=== PATIENT | female | born 2000 | race Caucasian/White ===

== ENCOUNTER 2021-03-01 10:21 | Observation (INO) | payer BC, MEDICAID ==
--- NOTE | 2021-03-01 11:26 | XRAY ---
Indication: Twin . well-being. Ultrasound biophysical profile exam of twin A demonstrates heart rate 144 BPM. Four-quadrant LEBRON is 9.8 cm, largest pocket 2.6 cm. 2 points given for breathing, movements, tone, and qualitative amniotic fluid volume. Impression: Twin A biophysical profile score is 8 out of 8.
--- NOTE | 2021-03-01 11:28 | XRAY ---
Indication: Twin . well-being. Ultrasound biophysical profile exam of twin B demonstrates heart rate 152 BPM. Four-quadrant LEBRON is 10.1 cm, largest pocket 3.4 cm. 2 points given for breathing, movements, tone, and qualitative amniotic fluid volume. Impression: Twin B biophysical profile score is 8 out of 8.
[2021-03-01 11:56] VITALS: O2SAT 98
[2021-03-01 13:33] VITALS: BP 110/59; PULSE 92
== END 2021-03-01 12:45 | disposition home or self-care (01) ==
LOC: MERGE 10:21 → MED SURG 10:21
PROVIDERS: ADMIT Family Medicine; ATTEND Family Medicine
DX: Z34.83 Encounter for supervision of other normal pregnancy, third trimester (principal); Z3A.32 32 weeks gestation of pregnancy
CPT/HCPCS: 59025; 76818; G0378

== ENCOUNTER 2021-03-06 11:53 | Observation (INO) | payer BC ==
--- NOTE | 2021-03-06 13:48 | XRAY ---
Indication: well-being. Ultrasound biophysical profile exam performed for twin B. heart rate 159 BPM. Four-quadrant LEBRON is 12.2 cm. 2 points given for breathing, movements, tone, and qualitative amniotic fluid volume. Impression: Total biophysical profile score for twin B is 8 out of 8.
--- NOTE | 2021-03-06 13:48 | XRAY ---
Indication: well-being. Ultrasound biophysical profile exam performed for twin A. heart rate 137 BPM. Four-quadrant LEBRON is 13.6 cm. 2 points given for breathing, movements, tone, and qualitative amniotic fluid volume. Impression: Total biophysical profile score for twin A is 8 out of 8.
[2021-03-06 13:55] VITALS: BP 119/68; PULSE 98
[2021-03-06 14:36] LABS: Absolute Neutrophil Ct (ANC) 5.71 (1.4-6.9); BASOPHIL % 0.4 % (0.0-0.4); Basophil (Absolute #) 0.03 (0-0.4); Eosinophil % 1.1 % (0.00-5.0); Eosinophil (Absolute #) 0.09 (0-0.5); Hematocrit 36.3 % (35-47); Hemoglobin 11.7 gm/dl (12.0-16.0); Lymphocyte (Absolute #) 1.44 (1.0-4.6); Mean Cell Volume 95.5 fl (78-100); Mean Corpuscular Hemoglobin 30.8 pg (26-32); Mean Corpuscular Hgb Concent. 32.2 g/dl (32-36); Mean Platelet Volume 11.9 fl (7.5-11.0); Monocyte (Absolute #) 0.74 (0.0-1.3); Monocytes % 9.2 % (0.0-12.0); Neutrophil % 71.3 % (36.0-66.0); Platelet Count 180 K/mm3 (150-450)
== END 2021-03-06 13:15 | disposition home or self-care (01) ==
LOC: OB 11:53 → MERGE 11:53
PROVIDERS: ADMIT Family Medicine; ATTEND Family Medicine
DX: Z34.83 Encounter for supervision of other normal pregnancy, third trimester (principal); Z3A.33 33 weeks gestation of pregnancy
CPT/HCPCS: 36415; 59025; 76819; 85025; 86592; 87340; G0378

== ENCOUNTER 2021-03-08 09:03 | Observation (INO) | payer BC ==
[2021-03-08 11:00] VITALS: BP 116/58; PULSE 107
--- NOTE | 2021-03-08 11:20 | XRAY ---
Indication: Routine care. Ultrasound biophysical profile exam performed for twin B. heart rate 152 BPM. Four-quadrant LEBRON is 9.3 cm. 2 points given for breathing, movements, tone, and qualitative amniotic fluid volume. Impression: Total biophysical profile score for twin B is 8 out of 8.
--- NOTE | 2021-03-08 11:20 | XRAY ---
Indication: Routine care. Ultrasound biophysical profile exam performed for twin A. heart rate 147 BPM. Four-quadrant LEBRON is 13.8 cm. 2 points given for breathing, movements, tone, and qualitative amniotic fluid volume. Impression: Total biophysical profile score for twin A is 8 out of 8.
== END 2021-03-08 11:25 | disposition home or self-care (01) ==
LOC: OB 09:54
PROVIDERS: ADMIT Family Medicine; ATTEND Family Medicine
DX: Z34.83 Encounter for supervision of other normal pregnancy, third trimester (principal); Z3A.33 33 weeks gestation of pregnancy
CPT/HCPCS: 59025; 76818; G0378

== ENCOUNTER 2021-03-13 07:50 | Observation (INO) | payer BC, MEDICAID ==
[2021-03-13 09:53] VITALS: BP 132/71; PULSE 94
--- NOTE | 2021-03-13 09:59 | XRAY ---
Indication: Routine care. Ultrasound biophysical profile exam performed of twin A. heart rate 176 BPM. Four-quadrant LEBRON is 9.3 cm, largest pocket 4.9 cm. 2 points given for breathing, movements, tone, and qualitative amniotic fluid volume. Impression: Total biophysical profile score twin A is 8 out of 8.
--- NOTE | 2021-03-13 10:01 | XRAY ---
Indication: Routine care. Ultrasound biophysical profile exam performed of twin B. heart rate 150 BPM. Four-quadrant LEBRON is 10.9 cm, largest pocket 4.4 cm. 2 points given for breathing, movements, tone, and qualitative amniotic fluid volume. Impression: Total biophysical profile score twin B is 8 out of 8.
== END 2021-03-13 10:15 | disposition home or self-care (01) ==
LOC: OB 07:51
PROVIDERS: ADMIT Family Medicine; ATTEND Family Medicine
DX: O30.003 Twin pregnancy, unspecified number of placenta and unspecified number of amniotic sacs, third trimester (principal); Z3A.34 34 weeks gestation of pregnancy
CPT/HCPCS: 59025; 76818; G0378

== ENCOUNTER 2021-03-15 08:53 | Observation (INO) | payer BC, MEDICAID ==
--- NOTE | 2021-03-15 11:03 | XRAY ---
Indication: Supervision twin . Ultrasound biophysical profile exam performed of twin A. heart rate 155 BPM. Four-quadrant LEBRON is 10.5 cm. 2 points given for breathing, movements, tone, and qualitative amniotic fluid volume. Impression: Twin A biophysical profile score is 8 out of 8.
--- NOTE | 2021-03-15 11:05 | XRAY ---
Indication: Supervision twin . Ultrasound biophysical profile exam performed of twin B. heart rate 135 BPM. Four-quadrant LEBRON is 11.2 cm. 2 points given for breathing, movements, tone, and qualitative amniotic fluid volume. Impression: Twin B biophysical profile score is 8 out of 8.
[2021-03-15 12:16] VITALS: BP 133/86; PULSE 86
== END 2021-03-15 10:45 | disposition home or self-care (01) ==
LOC: OB 08:53
PROVIDERS: ADMIT Family Medicine; ATTEND Family Medicine
DX: O30.003 Twin pregnancy, unspecified number of placenta and unspecified number of amniotic sacs, third trimester (principal); Z3A.34 34 weeks gestation of pregnancy
CPT/HCPCS: 59025; 76818; G0378

== ENCOUNTER 2021-03-20 23:44 | Inpatient (IN) | payer BC, MEDICAID ==
[2021-03-21 00:23] LABS: Amourphous Crystal FEW /HPF (NEGATIVE); Appearance SLIGHTLY CLOUDY (CLEAR); Bacteria MODERATE /HPF (NEGATIVE); Bilirubin NEGATIVE (NEGATIVE); Blood NEGATIVE Ery/ul (0-5); Epithelial Cells RARE /HPF (FEW); Glucose NEGATIVE (NEGATIVE); Ketones NEGATIVE (NEGATIVE); Leukocyte Esterase LARGE (NEGATIVE); Nitrite NEGATIVE (NEGATIVE); Protein,Urine Dip NEGATIVE (Negative); Specific Gravity 1.006 (1.005-1.025); Urobilinogen NEGATIVE mg/dL (0-1); WBC 26-50 /HPF (0-5)
[2021-03-21 00:35] LABS: Amphetamine,Urine NEGATIVE (NEGATIVE); Barbiturate,Urine NEGATIVE (NEGATIVE); Benzodiazepine,Urine NEGATIVE (NEGATIVE); Cocaine,Urine NEGATIVE (NEGATIVE); Methadone,Urine NEGATIVE (NEGATIVE); Opiate,Urine NEGATIVE (NEGATIVE); PCP,Urine NEGATIVE (NEGATIVE); THC,Urine NEGATIVE (NEGATIVE)
[2021-03-21] MEDS ORDERED: Lactated Ringers 1,000 ML IV ONE (00:40)
[2021-03-21] MEDS ORDERED: Zofran 4 MG/2 ML VIAL IV PRN (00:55)
[2021-03-21] MEDS ORDERED: Celestone Soluspan 6MG/ML IM SCH (01:00)
[2021-03-21] MEDS ORDERED: Magnesium Sulfate 40 Gm/1000 Ml H2O Premix*** 1,000 ML IV SCH (01:30)
[2021-03-21] MEDS: Nubain 10 MG/ML IV PRN ×2 (01:35→03:34)
[2021-03-21 01:41] LABS: Absolute Neutrophil Ct (ANC) 6.98 (1.4-6.9); BASOPHIL % 0.3 % (0.0-0.4); Basophil (Absolute #) 0.03 (0-0.4); Hematocrit 40.9 % (35-47); Hemoglobin 13.4 gm/dl (12.0-16.0); Lymphocyte (Absolute #) 2.22 (1.0-4.6); Lymphocytes % 21.9 % (24.0-44.0); Mean Cell Volume 92.7 fl (78-100); Mean Corpuscular Hemoglobin 30.4 pg (26-32); Mean Corpuscular Hgb Concent. 32.8 g/dl (32-36); Mean Platelet Volume 13.3 fl (7.5-11.0); Monocyte (Absolute #) 0.79 (0.0-1.3); Monocytes % 7.8 % (0.0-12.0); Platelet Count 192 K/mm3 (150-450); Red Blood Count 4.41 M/mm3 (4.1-5.4); Red Cell Distribution Width 13.8 % (11.5-14.0); White Blood Count 10.1 K/mm3 (4.0-10.5)
[2021-03-21 01:52] LABS: INR 0.94 (0.8-3.0); PROTIME 10.6 SECONDS (9.95-12.35)
[2021-03-21 01:55] LABS: PTT 25.7 SECONDS (25.3-37.0)
[2021-03-21 01:57] LABS: ALBUMIN 3.2 g/dL (3.5-5.0); ALKALINE PHOSPHATASE 349 U/L (38-126); ANION GAP 11.4 MEQ/L (5-15); BLOOD UREA NITROGEN 4 mg/dL (7-17); CHLORIDE 106 mmol/L (98-107); Calcium 9.8 mg/dL (8.4-10.2); Carbon Dioxide 20 mmol/L (22-30); Creatinine 1 0.66 mg/dL (0.52-1.04); EST GLOMERULAR FILTRATION RATE > 60.0 ML/MIN; Glucose 83 mg/dL (74-106); MAGNESIUM 2.2 mg/dL (1.6-2.3); Potassium 4.3 mmol/L (3.5-5.1); SGOT/AST 66 U/L (14-36); SGPT/ALT 52 U/L (0-35); SODIUM 134 mmol/L (137-145); Total Protein 6.4 g/dL (6.3-8.2)
[2021-03-21] MEDS: Lactated Ringers 1,000 ML IV SCH ×2 (02:31→23:36)
[2021-03-21 03:24] LABS: Creatinine, Urine Random 178.6 mg/dl
[2021-03-21] MEDS ORDERED: CLARITIN 10 MG PO PRN (04:07)
[2021-03-21] MEDS ORDERED: Narcan 0.4 MG/ML IV PRN (04:07)
[2021-03-21] MEDS ORDERED: SOD CITRATE-CITRIC ACID SOLN PO ONE (04:07)
[2021-03-21] MEDS ORDERED: HOLD NARCOTIC ANALGESICS AND SEDATIVES X24 HR MC PRN (04:07)
[2021-03-21] MEDS ORDERED: PERCOCET TABLET 5/325MG PO PRN (04:07)
[2021-03-21] MEDS ORDERED: BENADRYL 50 MG/ML IV PRN (04:07)
[2021-03-21] MEDS ORDERED: DEMEROL 50 MG IV PRN (04:07)
[2021-03-21] MEDS ORDERED: Pepcid 20 MG VIAL IV SCH (04:15)
[2021-03-21] MEDS ORDERED: Reglan 10 MG/2 ML IV SCH (04:15)
[2021-03-21] MEDS ORDERED: BICITRA 30 ML CUP ONE (04:25)
[2021-03-21] MEDS ORDERED: CEFAZOLIN 2 GM-D5W BAG** 2 GM/50 ML ML IV SCH (04:30)
[2021-03-21] MEDS ORDERED: Quelicin Fliptop 200 MG/10 ML ONE (04:59)
[2021-03-21] MEDS ORDERED: SUBLIMAZE 250 MCG/5 ML ONE (04:59)
[2021-03-21] MEDS ORDERED: DIPRIVAN 200 MG/20 ML IV ONE (04:59)
[2021-03-21] MEDS ORDERED: Zofran 4 MG/2 ML VIAL IV ONE (05:00)
[2021-03-21] MEDS ORDERED: DEMEROL 50 MG IJ ONE (05:00)
[2021-03-21] MEDS ORDERED: Sodium Chloride 0.9% 250 ML 250 ML IV ONE (05:00)
[2021-03-21] MEDS ORDERED: Sodium Chloride 0.9% 1000 ML 2,000 ML ONE (05:09)
[2021-03-21] MEDS ORDERED: Pitocin 10 UNITS/ML ONE ×2 (05:32→05:39)
[2021-03-21] MEDS ORDERED: Marcaine 0.5%/Epinephrine 10 ML ONE (05:41)
[2021-03-21] MEDS ORDERED: MARCAINE 0.5%-EPI 1:200,000 VL IJ ONE (05:41)
[2021-03-21 05:52] LABS: ABO TYPING O
[2021-03-21 05:53] LABS: Antibody Screen POSITIVE (NEGATIVE); RH TYPING NEGATIVE
[2021-03-21] MEDS ORDERED: BRIDION 200MG/2ML IV ONE (05:56)
[2021-03-21] MEDS: Dextrose 5%-Lr IV Solution 1000 ML 1,000 ML IV SCH ×3 (07:48→22:05)
[2021-03-21] MEDS ORDERED: Dulcolax 10 MG SUPP PR PRN (18:36)
[2021-03-21] MEDS ORDERED: Anucort-HC SUPPOSITORY PR PRN (18:36)
[2021-03-21] MEDS ORDERED: TUCKS TP PRN (18:36)
[2021-03-21] MEDS ORDERED: CORTISONE 1% CREAM TP PRN (18:36)
[2021-03-21] MEDS ORDERED: LANSINOH 40 GM TOP PRN (18:36)
[2021-03-21] MEDS ORDERED: Mylicon 80MG PO PRN (18:36)
[2021-03-21] MEDS ORDERED: TYLENOL EXTRA STRENGTH 500 MG PO PRN (18:36)
[2021-03-21] MEDS ORDERED: Dermoplast Spray TP PRN (18:36)
[2021-03-21] MEDS: MOTRIN 400 MG PO PRN (18:48)
[2021-03-21] MEDS ORDERED: NORCO 5/325 MG ONE (21:48)
[2021-03-21] MEDS: Colace 100 MG PO SCH (22:04)
[2021-03-21] MEDS: NORCO 5/325 MG PO PRN (22:04)
[2021-03-22] MEDS: MOTRIN 400 MG PO PRN ×3 (01:16→16:32)
[2021-03-22] MEDS: NORCO 5/325 MG PO PRN (03:41)
[2021-03-22 05:54] LABS: Absolute Neutrophil Ct (ANC) 11.38 (1.4-6.9); BASOPHIL % 0.2 % (0.0-0.4); Basophil (Absolute #) 0.04 (0-0.4); Eosinophil % 0.1 % (0.00-5.0); Eosinophil (Absolute #) 0.02 (0-0.5); Hematocrit 25.5 % (35-47); Hemoglobin 8.1 gm/dl (12.0-16.0); Lymphocytes % 19.5 % (24.0-44.0); Mean Cell Volume 98.5 fl (78-100); Mean Corpuscular Hemoglobin 31.3 pg (26-32); Mean Corpuscular Hgb Concent. 31.8 g/dl (32-36); Mean Platelet Volume 13.5 fl (7.5-11.0); Monocyte (Absolute #) 1.73 (0.0-1.3); Monocytes % 10.6 % (0.0-12.0); Neutrophil % 69.6 % (36.0-66.0); Platelet Count 197 K/mm3 (150-450); Red Blood Count 2.59 M/mm3 (4.1-5.4); White Blood Count 16.4 K/mm3 (4.0-10.5)
[2021-03-22] MEDS: Dextrose 5%-Lr IV Solution 1000 ML 1,000 ML IV SCH (06:33)
[2021-03-22] MEDS ORDERED: FERREX 150 PO SCH (10:00)
[2021-03-22] MEDS ORDERED: Rhogam Plus 300 MCG IM ONE (10:00)
[2021-03-22 10:08] LABS: Lymphocytes 40 % (24-44); Monocyte 7 % (0.0-12.0); Neutrophils 53 % (36.0-66.0); Total Cells Counted 100
--- NOTE | 2021-03-22 10:08 | PCM.NOTE ---
Date and Time: 03/22/21 1006 Subjective Assessment: pod 1 pt resting in bed and doing well eager to go home. pt ambulating and tolerating diet and states only minimal vaginal bleeding. vss afebrile abd; soft incicion c/d/intact uterus; firm lochia; mild hgb; 8.1 a/p sp csection for twin gestation with malpresentation pod 1 anemia advise to take iron supplementation tid will repeat cbc at 1 pm today pt eager to go home today will dc home today if hgb stable OBJECTIVE DATA Vital Signs: Vital Signs - 24 hr Temp Pulse Resp BP Pulse Ox 03/22/21 08:00 98.1 F 89 18 125/84 100 03/22/21 05:00 98 03/22/21 04:00 98.3 F 89 17 124/77 100 03/22/21 03:00 99 03/22/21 02:00 98 03/22/21 01:10 99 03/22/21 00:00 98 F 97 H 17 126/77 98 03/21/21 23:50 91 L 03/21/21 23:00 98 03/21/21 22:00 99 03/21/21 21:00 97 03/21/21 20:00 98.1 F 99 H 17 122/88 99 03/21/21 19:00 99 03/21/21 18:00 109 H 03/21/21 17:00 100 03/21/21 16:00 98.2 F 100 H 101 H 03/21/21 15:00 99 03/21/21 14:00 99 03/21/21 13:00 99 03/21/21 12:00 109 H 122/73 99 03/21/21 11:00 99 Pain Assessment - Last Documented Pain Intensity [Anterior/ 3 Posterior] Pain Intensity 4 Pain Scale Used 0-10 Pain Scale Intake and Output: Intake & Output 03/19/21 03/20/21 03/21/21 03/22/21 11:59 11:59 11:59 11:59 Intake Total 2300 4788 Output Total 980 1850 Balance 1320 2938 Weight 67.132 kg Lab Results: Lab Results-Last 24 Hours 03/21/21 03/22/21 Range/Units 08:00 05:45 WBC 16.4 H (4.0-10.5) K/mm3 RBC 2.59 L (4.1-5.4) M/mm3 Hgb 8.1 L D (12.0-16.0) gm/dl Hct 25.5 L (35-47) % MCV 98.5 D (78-100) fl MCH 31.3 (26-32) pg MCHC 31.8 L (32-36) g/dl RDW 14.0 (11.5-14.0) % Plt Count 197 (150-450) K/mm3 MPV 13.5 H (7.5-11.0) fl Gran % 69.6 H (36.0-66.0) % Eos # (Auto) 0.02 (0-0.5) Absolute Lymphs (auto) 3.20 (1.0-4.6) Absolute Monos (auto) 1.73 H (0.0-1.3) Lymphocytes % 19.5 L (24.0-44.0) % Monocytes % 10.6 (0.0-12.0) % Eosinophils % 0.1 (0.00-5.0) % Basophils % 0.2 (0.0-0.4) % Absolute Granulocytes 11.38 H (1.4-6.9) Basophils # 0.04 (0-0.4) Screen SEE SEPARATE REPORT
[2021-03-22 10:09] LABS: ANISOCYTOSIS 1+; Hypochromia 1+; Platelet Estimate NORMAL (NORMAL); Poikilocytosis 1+; Polychromasia 1+
--- NOTE | 2021-03-22 10:13 | PCM.DS ---
Discharge Summary Date of Admission: 03/20/21 23:45 Admitting Physician: BEAU CHANDRA MD Consults: Consults on Case 03/21/21 01:22 Notify Physician ROUTINE 03/21/21 04:08 Notify Anesthesia Provider PRN Primary Care Provider: BEAU CHANDRA MD Allergies Allergies latex Allergy (Verified 03/21/21 00:13) Hospital Summary - Hospital Course Hospital Course: pt admitted on march 21 with twin gestation in labor with malpresentation with twin b was noted to being 5-6 cm upon arrival to hospital where she was supposed to have been delivered in [place]. pt delivered via primary csection with ebl at 600c however was noted having a decreased hgb postoperatively day 1 to 8.1. pt asymptomatic and is able to ambulate and tolerate diet. pt eager to go home since babies were transferred to [place]. pt was advised to take iron supplementation tid and was advised to fu in office in 2 wks. all questions answered to her satisfaction. - Vitals & Intake/Output Vital Signs: Vital Signs Temperature 98.1 F 03/22/21 08:00 Pulse Rate 89 03/22/21 08:00 Respiratory Rate 18 03/22/21 08:00 Blood Pressure 125/84 03/22/21 08:00 O2 Sat by Pulse Oximetry 100 03/22/21 08:00 Intake & Output: Intake & Output 03/19/21 03/20/21 03/21/21 03/22/21 11:59 11:59 11:59 11:59 Intake Total 2300 4788 Output Total 980 1850 Balance 1320 2938 Weight 67.132 kg - Lab Result Diagrams: 03/22/21 05:45 03/21/21 01:15 Lab Results-Last 24 Hrs: Lab Results-Last 24 Hours 03/21/21 03/22/21 Range/Units 08:00 05:45 WBC 16.4 H (4.0-10.5) K/mm3 RBC 2.59 L (4.1-5.4) M/mm3 Hgb 8.1 L D (12.0-16.0) gm/dl Hct 25.5 L (35-47) % MCV 98.5 D (78-100) fl MCH 31.3 (26-32) pg MCHC 31.8 L (32-36) g/dl RDW 14.0 (11.5-14.0) % Plt Count 197 (150-450) K/mm3 MPV 13.5 H (7.5-11.0) fl Gran % 69.6 H (36.0-66.0) % Eos # (Auto) 0.02 (0-0.5) Absolute Lymphs (auto) 3.20 (1.0-4.6) Absolute Monos (auto) 1.73 H (0.0-1.3) Lymphocytes % 19.5 L (24.0-44.0) % Monocytes % 10.6 (0.0-12.0) % Eosinophils % 0.1 (0.00-5.0) % Basophils % 0.2 (0.0-0.4) % Absolute Granulocytes 11.38 H (1.4-6.9) Basophils # 0.04 (0-0.4) Slides for Path Review [employer]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 SEE SEPARATE REPORT Micro Results-Entire Visit: Microbiology 03/21/21 00:13 Urine Culture - Preliminary Urine, Void NO GROWTH TO DATE Final Diagnosis/Problem List - Final Discharge Diagnosis/Problem (1) delivery delivered Current Visit: Yes Status: Acute Code(s): O82 - ENCOUNTER FOR DELIVERY WITHOUT INDICATION (2) Twin gestation in third trimester Current Visit: Yes Status: Acute Code(s): O30.003 - TWIN PREG, UNSP NUM PLCNTA & AMNIO SACS, THIRD TRIMESTER - Discharge Disposition: Home, Self-Care Condition: Stable Prescriptions: No Action Vits W-Ca,Fe,FA(<1Mg) [] 1 each PO DAILY Loratadine 10 mg [Claritin 10 mg] 10 mg PO DAILY PRN PRN PRN Reason: Allergies Nitrofurantoin Monohyd/M-Cryst [Nitrofurantoin [place]-Mcr 100 mg] 100 mg PO DAILY Folic Acid 1 mg [Folate 1 mg] 1 mg PO HS Calcium Carbonate [Calcium] 500 mg PO HS Aspirin 81 gm Chew [Baby Aspirin 81 mg Chew] 2 tab PO DAILY Follow up with: BEAU CHANDRA MD [Primary Care Provider] -
--- NOTE | 2021-03-22 10:14 | PCM.DCORD ---
- Discharge Disposition: Home, Self-Care Condition: Stable Prescriptions: No Action Vits W-Ca,Fe,FA(<1Mg) [] 1 each PO DAILY Loratadine 10 mg [Claritin 10 mg] 10 mg PO DAILY PRN PRN PRN Reason: Allergies Nitrofurantoin Monohyd/M-Cryst [Nitrofurantoin [place]-Mcr 100 mg] 100 mg PO DAILY Folic Acid 1 mg [Folate 1 mg] 1 mg PO HS Calcium Carbonate [Calcium] 500 mg PO HS Aspirin 81 gm Chew [Baby Aspirin 81 mg Chew] 2 tab PO DAILY Follow up with: BEAU CHANDRA MD [Primary Care Provider] - DEN HERRERA DO [ACTIVE STAFF] - 2 weeks (keep incision clean and dry should fu in office in 2 wks)
[2021-03-22] MEDS: Colace 100 MG PO SCH ×2 (11:05→22:48)
--- NOTE | 2021-03-22 11:23 | OP ---
SURGERY DATE/TIME: 03/21/2021 0514 PREOPERATIVE DIAGNOSIS: Intrauterine at 35 weeks and 3 days with two gestation in labor with malpresentation of twin B, multiparity, desires tubal sterilization. POSTOPERATIVE DIAGNOSIS: Intrauterine at 35 weeks and 3 days with two gestation in labor with malpresentation of twin B, multiparity, desires tubal sterilization. PROCEDURES: 1) Primary section, low flap transverse uterine incision, Pfannenstiel skin incision. 2) Bilateral tubal sterilization. SURGEON: Isaias Cullen D.O. AIRDROP SYSTEMS TECHNICIAN: Dr. Mcnally. ANESTHESIA: General. ESTIMATED BLOOD LOSS: 600 cc. COMPLICATIONS: None. INDICATIONS: The risks, benefits, indications and alternatives of the procedure were reviewed with the patient prior to procedure. The patient understood the risk of infection, bleeding, bowel injury, bladder injury, ureteral injury, incisional hernia, possible pelvic infection and clotting disorder associated with this procedure however desires to have this procedure as a possible mean to alleviate her current medical condition. DESCRIPTION OF PROCEDURE AND FINDINGS: At this point the patient is taken to the operating room where general anesthesia was found to adequate. She was then prepared and draped in normal sterile fashion in dorsal supine position with a leftward tilt. A Pfannenstiel skin incision is made with scalpel and carried through to the underlying layer of the fascia with a Bovie. The fascia was then incised in the midline and the incision extended laterally with Patel scissors. The superior aspect of the fascial incision was then grasped with Kole clamps elevated and the underlying rectus muscles dissected off bluntly. Attention is then turned to the inferior aspect of this incision which in similar fashion was grasped, tented up with Kole clamps and the rectus muscles dissected off bluntly. The rectus muscles were then in the midline and the peritoneum identified, tented up and entered sharply with Metzenbaum scissors. The peritoneal incision was then extended superiorly and inferiorly with good visualization of the bladder. The bladder blade was then inserted and the lower uterine segment incised in transverse fashion with a scalpel. The uterine incision was then extended laterally with bandage scissors. The bladder blade was then removed and twin A was delivered atraumatically in vertex presentation with the nose and mouth were suctioned with bulb suction and the cord clamped and cut. The was then handed off to the awaiting nurses. Twin B was delivered in breech buttock presentation first, lower extremities and finally the trunk and then finally the head. Again, the nose and mouth were suctioned with bulb suction. The cord clamped and cut and the infant was handed off to the awaiting nurses. The placenta was then removed. The uterus exteriorized and cleared of all clots and debris. The uterine incision was repaired with 1-0 chromic in a running locked fashion. A second layer of the same suture was used to obtain excellent hemostasis. From this point a Terrance clamp was then used to grasp the tube approximately 4 cm from the cornual region where a 3 cm segment of tube was then ligated with free tie of plain gut and excised. Good hemostasis was noted. A Clymer clamp was placed on the right side was used to grasp the tube approximately 4 cm from the cornual region where a 3 cm segment of the tube was then ligated with free tie of plain gut and excised. Good hemostasis was assured. From this point the uterus is then returned to the abdomen. The gutters were cleared of all clots and the peritoneal muscles closed in interrupted fashion using 2-0 chromic suture. The fascia was re-approximated with 0 Vicryl in a running fashion. The skin was closed with absorbable holden called INSORB. The patient tolerated the procedure well. Sponge, lap, needle and instrument counts correct x2. The patient was then taken to the recovery room in stable condition. The patient delivered twin A at 0531 hours and twin B at 0532 hours.
[2021-03-22 13:28] LABS: Hematocrit 23.4 % (35-47); Hemoglobin 7.4 gm/dl (12.0-16.0); Mean Cell Volume 98.7 fl (78-100); Mean Corpuscular Hemoglobin 31.2 pg (26-32); Mean Corpuscular Hgb Concent. 31.6 g/dl (32-36); Mean Platelet Volume 12.1 fl (7.5-11.0); Platelet Count 180 K/mm3 (150-450); Red Blood Count 2.37 M/mm3 (4.1-5.4); Red Cell Distribution Width 14.1 % (11.5-14.0); White Blood Count 13.6 K/mm3 (4.0-10.5)
[2021-03-22 14:33] LABS: BAND 1 % (0.0-2.0); Lymphocytes 21 % (24-44); Neutrophils 78 % (36.0-66.0); Total Cells Counted 100
[2021-03-22 14:34] LABS: ANISOCYTOSIS 1+; Poikilocytosis 1+; Polychromasia 1+
[2021-03-22 14:36] LABS: Platelet Estimate NORMAL (NORMAL)
--- NOTE | 2021-03-22 15:07 | XRAY ---
Indication: Dropping hemoglobin. Status post section. Targeted soft tissue ultrasound of the abdominal wall incision demonstrates heterogeneous fluid collection measuring at least 8.8 x 14 cm and 3 cm in thickness without abnormal color Doppler flow, probably postoperative hematoma/seroma. Infected fluid collection not completely excluded in the right clinical setting.
--- NOTE | 2021-03-22 17:00 | XRAY ---
Indication: Blood count drop. Status post section one day earlier. Multiple contiguous axial images obtained through the abdomen and pelvis prior to and following 80 cc Isovue 370 contrast. Comparison: None Lung bases demonstrates minimal subsegmental atelectasis/scarring without infiltrate or effusion. Heart is nonenlarged. Small hiatal hernia. Noncontrast images are negative for pathologic visceral calcification/calculi. Noncontrasted stomach and bowel loops appear nonobstructed. Postcontrast images demonstrates normal visceral enhancement and renal excretion. Markedly enlarged uterus with prominent gonadal veins consistent with recent . Tiny free air and small free fluid throughout the abdomen/pelvis and air bubbles in the endometrial cavity of the uterus all presumed related to with section. Anterior abdominal wall at the level of the pelvis demonstrates large heterogeneous solid/fluid/air density mass measuring at least 3.6 x 20.2 x 13.3 cm probable postoperative abdominal wall hematoma/seroma and less likely abscess. Gallbladder contracted without gallstones. Remaining liver, pancreas, spleen, adrenal glands, kidneys, ureters, bladder, and aorta are unremarkable. No pathologic retroperitoneal lymphadenopathy. Osseous structures intact. Impression: 1. Enlarged uterus with endometrial cavity air and small free fluid/free air in the abdomen/pelvis all presumed related to recent with section. 2. Abdominal wall heterogeneous mass as detailed presumed postoperative hematoma/seroma and less likely abscess. 3. Incidental small hiatal hernia.
[2021-03-22] MEDS ORDERED: SOD CITRATE-CITRIC ACID SOLN PO ONE (17:28)
[2021-03-22] MEDS ORDERED: Sodium Chloride 0.9% 1000 ML 1,000 ML IV SCH (17:45)
[2021-03-22 17:48] LABS: Hematocrit 23.4 % (35-47); Hemoglobin 7.4 gm/dl (12.0-16.0); Mean Cell Volume 97.9 fl (78-100); Mean Corpuscular Hgb Concent. 31.6 g/dl (32-36); Mean Platelet Volume 12.6 fl (7.5-11.0); Platelet Count 196 K/mm3 (150-450); Red Blood Count 2.39 M/mm3 (4.1-5.4); Red Cell Distribution Width 14.1 % (11.5-14.0); White Blood Count 13.2 K/mm3 (4.0-10.5)
[2021-03-22] MEDS ORDERED: BRIDION 200MG/2ML IV ONE (18:00)
[2021-03-22] MEDS ORDERED: DIPRIVAN 200 MG/20 ML IV ONE (18:00)
[2021-03-22] MEDS ORDERED: Lactated Ringers 1,000 ML IV SCH (18:00)
[2021-03-22] MEDS ORDERED: SUBLIMAZE 100 MCG/2 ML IV ONE (18:00)
[2021-03-22] MEDS ORDERED: CEFAZOLIN 2 GM-D5W BAG** 2 GM/50 ML ML IV SCH (18:00)
[2021-03-22] MEDS ORDERED: Versed 2 MG/2 ML Injection IV ONE (18:00)
[2021-03-22] MEDS ORDERED: CEFAZOLIN 2 GM-D5W BAG** 2 GM/50 ML ML IV ONE (18:01)
[2021-03-22] MEDS ORDERED: BICITRA 30 ML CUP ONE (18:02)
[2021-03-22 18:04] LABS: ALBUMIN 2.3 g/dL (3.5-5.0); ALKALINE PHOSPHATASE 196 U/L (38-126); ANION GAP 8.2 MEQ/L (5-15); BLOOD UREA NITROGEN 7 mg/dL (7-17); CHLORIDE 105 mmol/L (98-107); Calcium 8.5 mg/dL (8.4-10.2); Carbon Dioxide 25 mmol/L (22-30); Creatinine 1 0.76 mg/dL (0.52-1.04); EST GLOMERULAR FILTRATION RATE > 60.0 ML/MIN; Glucose 75 mg/dL (74-106); Potassium 4.1 mmol/L (3.5-5.1); SGOT/AST 40 U/L (14-36); SGPT/ALT 34 U/L (0-35); SODIUM 134 mmol/L (137-145); Total Protein 4.7 g/dL (6.3-8.2)
[2021-03-22 19:01] LABS: CROSS MATCH (PRBC) COMPATIBLE (COMPATIBLE)
[2021-03-22 20:05] LABS: Lymphocytes 19 % (24-44); Monocyte 3 % (0.0-12.0); Neutrophils 78 % (36.0-66.0); Platelet Estimate NORMAL (NORMAL); Total Cells Counted 100
[2021-03-23] MEDS ORDERED: CEFAZOLIN 2 GM-D5W BAG** 2 GM/50 ML ML IV SCH (02:30)
[2021-03-23] MEDS: MOTRIN 400 MG PO PRN ×2 (02:43→08:50)
[2021-03-23 05:53] LABS: Hematocrit 24.1 % (35-47); Hemoglobin 7.6 gm/dl (12.0-16.0); Mean Cell Volume 98.4 fl (78-100); Mean Corpuscular Hgb Concent. 31.5 g/dl (32-36); Mean Platelet Volume 11.9 fl (7.5-11.0); Platelet Count 179 K/mm3 (150-450); Red Blood Count 2.45 M/mm3 (4.1-5.4); Red Cell Distribution Width 14.2 % (11.5-14.0); White Blood Count 11.2 K/mm3 (4.0-10.5)
--- NOTE | 2021-03-23 07:23 | PCM.NOTE ---
Date and Time: 03/23/21720 Subjective Assessment: pod 2 pt resting in chair and eager to go home. ambulating and tolerating diet. vss afebrile abd; soft incision c/d/intact uterus; firm lochia; mild hgb; 7.6 a/p sp csection with subsequent incision and evacuation of abdominal wall hematoma dc home today should fu office in 2 wks. OBJECTIVE DATA Vital Signs: Vital Signs - 24 hr Temp Pulse Resp BP Pulse Ox 03/23/21 02:45 98.0 F 105 H 18 129/66 03/22/21 22:45 104 H 18 135/78 03/22/21 21:25 101 H 18 136/87 03/22/21 20:55 84 18 130/78 03/22/21 20:40 96 H 18 139/82 03/22/21 20:25 83 18 127/73 03/22/21 20:10 98.0 F 88 18 124/70 03/22/21 17:50 98.3 F 96 H 18 122/82 03/22/21 14:00 98.1 F 120 H 18 125/83 03/22/21 08:00 98.1 F 89 18 125/84 100 Pain Assessment - Last Documented Pain Intensity [Anterior/ 3 Posterior] Pain Intensity 1 Pain Scale Used 0-10 Pain Scale Intake and Output: Intake & Output 03/20/21 03/21/21 03/22/21 03/23/21 11:59 11:59 11:59 11:59 Intake Total 2300 4788 Output Total 980 1850 Balance 1320 2938 Weight 67.132 kg 67.132 kg Lab Results: Lab Results-Last 24 Hours 03/21/21 03/21/21 03/22/21 Range/Units 04:52 06:00 05:45 WBC 16.4 H (4.0-10.5) K/mm3 RBC 2.59 L (4.1-5.4) M/mm3 Hgb 8.1 L D (12.0-16.0) gm/dl Hct 25.5 L (35-47) % MCV 98.5 D (78-100) fl MCH 31.3 (26-32) pg MCHC 31.8 L (32-36) g/dl RDW 14.0 (11.5-14.0) % Plt Count 197 (150-450) K/mm3 MPV 13.5 H (7.5-11.0) fl Gran % 69.6 H (36.0-66.0) % Eos # (Auto) 0.02 (0-0.5) Absolute Lymphs (auto) 3.20 (1.0-4.6) Absolute Monos (auto) 1.73 H (0.0-1.3) Lymphocytes % 19.5 L (24.0-44.0) % Monocytes % 10.6 (0.0-12.0) % Eosinophils % 0.1 (0.00-5.0) % Basophils % 0.2 (0.0-0.4) % Absolute Granulocytes 11.38 H (1.4-6.9) Segmented Neutrophils 53 (36.0-66.0) % Band Neutrophils (0.0-2.0) % Lymphocytes (Manual) 40 (24-44) % Monocytes (Manual) 7 (0.0-12.0) % Basophils # 0.04 (0-0.4) Hypochromia 1+ Platelet Estimate NORMAL (NORMAL) RBC Morphology ABNORMAL Polychromasia 1+ Poikilocytosis 1+ Anisocytosis 1+ Sodium (137-145) mmol/L Potassium (3.5-5.1) mmol/L Chloride (98-107) mmol/L Carbon Dioxide (22-30) mmol/L Anion Gap (5-15) MEQ/L BUN (7-17) mg/dL Creatinine (0.52-1.04) mg/dL Estimated GFR ML/MIN Glucose (74-106) mg/dL Calcium (8.4-10.2) mg/dL Total Bilirubin (0.2-1.3) mg/dL AST (14-36) U/L ALT (0-35) U/L Alkaline Phosphatase (38-126) U/L Serum Total Protein (6.3-8.2) g/dL Albumin (3.5-5.0) g/dL Slides for Path Review P[employer]CTOR Crossmatch COMPATIBLE COMPATIBLE (COMPATIBLE) 03/22/21 03/22/21 03/22/21 Range/Units 13:10 17:46 17:46 WBC 13.6 H 13.2 H (4.0-10.5) K/mm3 RBC 2.37 L 2.39 L (4.1-5.4) M/mm3 Hgb 7.4 L 7.4 L (12.0-16.0) gm/dl Hct 23.4 L 23.4 L (35-47) % MCV 98.7 97.9 (78-100) fl MCH 31.2 31.0 (26-32) pg MCHC 31.6 L 31.6 L (32-36) g/dl RDW 14.1 H 14.1 H (11.5-14.0) % Plt Count 180 196 (150-450) K/mm3 MPV 12.1 H 12.6 H (7.5-11.0) fl Gran % (36.0-66.0) % Eos # (Auto) (0-0.5) Absolute Lymphs (auto) (1.0-4.6) Absolute Monos (auto) (0.0-1.3) Lymphocytes % (24.0-44.0) % Monocytes % (0.0-12.0) % Eosinophils % (0.00-5.0) % Basophils % (0.0-0.4) % Absolute Granulocytes (1.4-6.9) Segmented Neutrophils 78 H 78 H (36.0-66.0) % Band Neutrophils 1 (0.0-2.0) % Lymphocytes (Manual) 21 L 19 L (24-44) % Monocytes (Manual) 3 (0.0-12.0) % Basophils # (0-0.4) Hypochromia Platelet Estimate NORMAL NORMAL (NORMAL) RBC Morphology ABNORMAL NORMAL Polychromasia 1+ Poikilocytosis 1+ Anisocytosis 1+ Sodium 134 L (137-145) mmol/L Potassium 4.1 (3.5-5.1) mmol/L Chloride 105 (98-107) mmol/L Carbon Dioxide 25 (22-30) mmol/L Anion Gap 8.2 (5-15) MEQ/L BUN 7 (7-17) mg/dL Creatinine 0.76 (0.52-1.04) mg/dL Estimated GFR > 60.0 ML/MIN Glucose 75 (74-106) mg/dL Calcium 8.5 (8.4-10.2) mg/dL Total Bilirubin 0.20 (0.2-1.3) mg/dL AST 40 H (14-36) U/L ALT 34 (0-35) U/L Alkaline Phosphatase 196 H (38-126) U/L Serum Total Protein 4.7 L (6.3-8.2) g/dL Albumin 2.3 L (3.5-5.0) g/dL Slides for Path Review Crossmatch (COMPATIBLE) 03/23/21 Range/Units 05:45 WBC 11.2 H (4.0-10.5) K/mm3 RBC 2.45 L (4.1-5.4) M/mm3 Hgb 7.6 L (12.0-16.0) gm/dl Hct 24.1 L (35-47) % MCV 98.4 (78-100) fl MCH 31.0 (26-32) pg MCHC 31.5 L (32-36) g/dl RDW 14.2 H (11.5-14.0) % Plt Count 179 (150-450) K/mm3 MPV 11.9 H (7.5-11.0) fl Gran % (36.0-66.0) % Eos # (Auto) (0-0.5) Absolute Lymphs (auto) (1.0-4.6) Absolute Monos (auto) (0.0-1.3) Lymphocytes % (24.0-44.0) % Monocytes % (0.0-12.0) % Eosinophils % (0.00-5.0) % Basophils % (0.0-0.4) % Absolute Granulocytes (1.4-6.9) Segmented Neutrophils (36.0-66.0) % Band Neutrophils (0.0-2.0) % Lymphocytes (Manual) (24-44) % Monocytes (Manual) (0.0-12.0) % Basophils # (0-0.4) Hypochromia Platelet Estimate (NORMAL) RBC Morphology Polychromasia Poikilocytosis Anisocytosis Sodium (137-145) mmol/L Potassium (3.5-5.1) mmol/L Chloride (98-107) mmol/L Carbon Dioxide (22-30) mmol/L Anion Gap (5-15) MEQ/L BUN (7-17) mg/dL Creatinine (0.52-1.04) mg/dL Estimated GFR ML/MIN Glucose (74-106) mg/dL Calcium (8.4-10.2) mg/dL Total Bilirubin (0.2-1.3) mg/dL AST (14-36) U/L ALT (0-35) U/L Alkaline Phosphatase (38-126) U/L Serum Total Protein (6.3-8.2) g/dL Albumin (3.5-5.0) g/dL Slides for Path Review Crossmatch (COMPATIBLE) Radiology Exams: Radiology Procedures Category Date Time Status ABDOMEN AND PELVIS W&WO CONTRA [CT] Stat Exams 03/22/21 15:23 Completed PELVIC [US] Stat Exams 03/22/21 14:54 Completed Assessment/Plan (1) delivery delivered Current Visit: Yes Status: Acute Code(s): O82 - ENCOUNTER FOR DELIVERY WITHOUT INDICATION (2) Twin gestation in third trimester Current Visit: Yes Status: Acute Code(s): O30.003 - TWIN PREG, UNSP NUM PL CNTA & AMNIO SACS, THIRD TRIMESTER
--- NOTE | 2021-03-23 07:28 | PCM.DS ---
Discharge Summary Date of Admission: 03/20/21 23:45 Admitting Physician: BEAU CHANDRA MD Consults: Consults on Case 03/21/21 01:22 Notify Physician ROUTINE 03/21/21 04:08 Notify Anesthesia Provider PRN 03/22/21 10:56 Navigation ONCE Primary Care Provider: BEAU CHANDRA MD Allergies Allergies latex Allergy (Verified 03/21/21 00:13) Hospital Summary - Hospital Course Hospital Course: pt admitted on march 21 for being in labor with twin gestation and subsequently underwent primary csection. delivered two boys which were transferred to [facility] and during posop period did well however was noted having decreasing hgb level to 7.4 from [address] scan done showing abdominal wall hematoma. pt was subsequently taking to OR for incision and evacuation of abdominal wall hematoma and was done so without complication. today pt doing well with stable hgb level at 7.6 and asymptomatic. pt was advised to fu in office in 2 wks for incisional check. pt declines narcotic for pain managment and was discharged today. - Vitals & Intake/Output Vital Signs: Vital Signs Temperature 98.0 F 03/23/21 02:45 Pulse Rate 105 H 03/23/21 02:45 Respiratory Rate 18 03/23/21 02:45 Blood Pressure 129/66 03/23/21 02:45 O2 Sat by Pulse Oximetry 100 03/22/21 08:00 Intake & Output: Intake & Output 03/20/21 03/21/21 03/22/21 03/23/21 11:59 11:59 11:59 11:59 Intake Total 2300 4788 Output Total 980 1850 Balance 1320 2938 Weight 67.132 kg 67.132 kg - Lab Result Diagrams: 03/23/21 05:45 03/22/21 17:46 Lab Results-Last 24 Hrs: Lab Results-Last 24 Hours 03/21/21 03/21/21 03/22/21 Range/Units 04:52 06:00 05:45 WBC 16.4 H (4.0-10.5) K/mm3 RBC 2.59 L (4.1-5.4) M/mm3 Hgb 8.1 L D (12.0-16.0) gm/dl Hct 25.5 L (35-47) % MCV 98.5 D (78-100) fl MCH 31.3 (26-32) pg MCHC 31.8 L (32-36) g/dl RDW 14.0 (11.5-14.0) % Plt Count 197 (150-450) K/mm3 MPV 13.5 H (7.5-11.0) fl Gran % 69.6 H (36.0-66.0) % Eos # (Auto) 0.02 (0-0.5) Absolute Lymphs (auto) 3.20 (1.0-4.6) Absolute Monos (auto) 1.73 H (0.0-1.3) Lymphocytes % 19.5 L (24.0-44.0) % Monocytes % 10.6 (0.0-12.0) % Eosinophils % 0.1 (0.00-5.0) % Basophils % 0.2 (0.0-0.4) % Absolute Granulocytes 11.38 H (1.4-6.9) Segmented Neutrophils 53 (36.0-66.0) % Band Neutrophils (0.0-2.0) % Lymphocytes (Manual) 40 (24-44) % Monocytes (Manual) 7 (0.0-12.0) % Basophils # 0.04 (0-0.4) Hypochromia 1+ Platelet Estimate NORMAL (NORMAL) RBC Morphology ABNORMAL Polychromasia 1+ Poikilocytosis 1+ Anisocytosis 1+ Sodium (137-145) mmol/L Potassium (3.5-5.1) mmol/L Chloride (98-107) mmol/L Carbon Dioxide (22-30) mmol/L Anion Gap (5-15) MEQ/L BUN (7-17) mg/dL Creatinine (0.52-1.04) mg/dL Estimated GFR ML/MIN Glucose (74-106) mg/dL Calcium (8.4-10.2) mg/dL Total Bilirubin (0.2-1.3) mg/dL AST (14-36) U/L ALT (0-35) U/L Alkaline Phosphatase (38-126) U/L Serum Total Protein (6.3-8.2) g/dL Albumin (3.5-5.0) g/dL Slides for Path Review SPECIAL EDUCATOR Crossmatch COMPATIBLE COMPATIBLE (COMPATIBLE) 03/22/21 03/22/21 03/22/21 Range/Units 13:10 17:46 17:46 WBC 13.6 H 13.2 H (4.0-10.5) K/mm3 RBC 2.37 L 2.39 L (4.1-5.4) M/mm3 Hgb 7.4 L 7.4 L (12.0-16.0) gm/dl Hct 23.4 L 23.4 L (35-47) % MCV 98.7 97.9 (78-100) fl MCH 31.2 31.0 (26-32) pg MCHC 31.6 L 31.6 L (32-36) g/dl RDW 14.1 H 14.1 H (11.5-14.0) % Plt Count 180 196 (150-450) K/mm3 MPV 12.1 H 12.6 H (7.5-11.0) fl Gran % (36.0-66.0) % Eos # (Auto) (0-0.5) Absolute Lymphs (auto) (1.0-4.6) Absolute Monos (auto) (0.0-1.3) Lymphocytes % (24.0-44.0) % Monocytes % (0.0-12.0) % Eosinophils % (0.00-5.0) % Basophils % (0.0-0.4) % Absolute Granulocytes (1.4-6.9) Segmented Neutrophils 78 H 78 H (36.0-66.0) % Band Neutrophils 1 (0.0-2.0) % Lymphocytes (Manual) 21 L 19 L (24-44) % Monocytes (Manual) 3 (0.0-12.0) % Basophils # (0-0.4) Hypochromia Platelet Estimate NORMAL NORMAL (NORMAL) RBC Morphology ABNORMAL NORMAL Polychromasia 1+ Poikilocytosis 1+ Anisocytosis 1+ Sodium 134 L (137-145) mmol/L Potassium 4.1 (3.5-5.1) mmol/L Chloride 105 (98-107) mmol/L Carbon Dioxide 25 (22-30) mmol/L Anion Gap 8.2 (5-15) MEQ/L BUN 7 (7-17) mg/dL Creatinine 0.76 (0.52-1.04) mg/dL Estimated GFR > 60.0 ML/MIN Glucose 75 (74-106) mg/dL Calcium 8.5 (8.4-10.2) mg/dL Total Bilirubin 0.20 (0.2-1.3) mg/dL AST 40 H (14-36) U/L ALT 34 (0-35) U/L Alkaline Phosphatase 196 H (38-126) U/L Serum Total Protein 4.7 L (6.3-8.2) g/dL Albumin 2.3 L (3.5-5.0) g/dL Slides for Path Review Crossmatch (COMPATIBLE) 03/23/21 Range/Units 05:45 WBC 11.2 H (4.0-10.5) K/mm3 RBC 2.45 L (4.1-5.4) M/mm3 Hgb 7.6 L (12.0-16.0) gm/dl Hct 24.1 L (35-47) % MCV 98.4 (78-100) fl MCH 31.0 (26-32) pg MCHC 31.5 L (32-36) g/dl RDW 14.2 H (11.5-14.0) % Plt Count 179 (150-450) K/mm3 MPV 11.9 H (7.5-11.0) fl Gran % (36.0-66.0) % Eos # (Auto) (0-0.5) Absolute Lymphs (auto) (1.0-4.6) Absolute Monos (auto) (0.0-1.3) Lymphocytes % (24.0-44.0) % Monocytes % (0.0-12.0) % Eosinophils % (0.00-5.0) % Basophils % (0.0-0.4) % Absolute Granulocytes (1.4-6.9) Segmented Neutrophils (36.0-66.0) % Band Neutrophils (0.0-2.0) % Lymphocytes (Manual) (24-44) % Monocytes (Manual) (0.0-12.0) % Basophils # (0-0.4) Hypochromia Platelet Estimate (NORMAL) RBC Morphology Polychromasia Poikilocytosis Anisocytosis Sodium (137-145) mmol/L Potassium (3.5-5.1) mmol/L Chloride (98-107) mmol/L Carbon Dioxide (22-30) mmol/L Anion Gap (5-15) MEQ/L BUN (7-17) mg/dL Creatinine (0.52-1.04) mg/dL Estimated GFR ML/MIN Glucose (74-106) mg/dL Calcium (8.4-10.2) mg/dL Total Bilirubin (0.2-1.3) mg/dL AST (14-36) U/L ALT (0-35) U/L Alkaline Phosphatase (38-126) U/L Serum Total Protein (6.3-8.2) g/dL Albumin (3.5-5.0) g/dL Slides for Path Review Crossmatch (COMPATIBLE) Micro Results-Entire Visit: Microbiology 03/21/21 00:13 Urine Culture - Preliminary Urine, Void NO GROWTH TO DATE - Radiology Exams Ordered Rad Exams-Entire Visit: Radiology Procedures Category Date Time Status ABDOMEN AND PELVIS W&WO CONTRA [CT] Stat Exams 03/22/21 15:23 Completed PELVIC [US] Stat Exams 03/22/21 14:54 Completed Final Diagnosis/Problem List - Final Discharge Diagnosis/Problem (1) delivery delivered Current Visit: Yes Status: Acute Code(s): O82 - ENCOUNTER FOR DELIVERY WITHOUT INDICATION (2) Twin gestation in third trimester Current Visit: Yes Status: Acute Code(s): O30.003 - TWIN PREG, UNSP NUM PLCNTA & AMNIO SACS, THIRD TRIMESTER (3) Abdominal wall hematoma Current Visit: Yes Status: Acute Code(s): S30.1XXA - CONTUSION OF ABDOMINAL WALL, INITIAL ENCOUNTER (4) Hematoma of abdominal wall Current Visit: Yes Status: Acute Code(s): S30.1XXA - CONTUSION OF ABDOMINAL WALL, INITIAL ENCOUNTER (5) Postprocedural hematoma of abdominal wall Current Visit: Yes Status: Acute Code(s): MFL7042 - - Discharge Disposition: Home, Self-Care Condition: Stable Prescriptions: No Action Vits W-Ca,Fe,FA(<1Mg) [] 1 each PO DAILY Loratadine 10 mg [Claritin 10 mg] 10 mg PO DAILY PRN PRN PRN Reason: Allergies Nitrofurantoin Monohyd/M-Cryst [Nitrofurantoin [place]-Mcr 100 mg] 100 mg PO DAILY Folic Acid 1 mg [Folate 1 mg] 1 mg PO HS Calcium Carbonate [Calcium] 500 mg PO HS Aspirin 81 gm Chew [Baby Aspirin 81 mg Chew] 2 tab PO DAILY Follow up with: BEAU CHANDRA MD [Primary Care Provider] - DEN HERRERA DO [ACTIVE STAFF] - 2 weeks (keep incision clean and dry should fu in office in 2 wks)
--- NOTE | 2021-03-23 07:31 | PCM.DCORD ---
- Discharge Disposition: Home, Self-Care Condition: Stable Prescriptions: No Action Vits W-Ca,Fe,FA(<1Mg) [] 1 each PO DAILY Loratadine 10 mg [Claritin 10 mg] 10 mg PO DAILY PRN PRN PRN Reason: Allergies Nitrofurantoin Monohyd/M-Cryst [Nitrofurantoin [place]-Mcr 100 mg] 100 mg PO DAILY Folic Acid 1 mg [Folate 1 mg] 1 mg PO HS Calcium Carbonate [Calcium] 500 mg PO HS Aspirin 81 gm Chew [Baby Aspirin 81 mg Chew] 2 tab PO DAILY Follow up with: BEAU CHANDRA MD [Primary Care Provider] - DEN HERRERA DO [ACTIVE STAFF] - 2 weeks (keep incision clean and dry should fu in office in 2 wks)
[2021-03-23 07:57] LABS: BAND 7 % (0.0-2.0); Lymphocytes 26 % (24-44); Metamyelocyte 1 %; Monocyte 6 % (0.0-12.0); Neutrophils 60 % (36.0-66.0); Total Cells Counted 100
[2021-03-23 07:58] LABS: Absolute Neutrophil Ct (ANC) 7.51 (1.4-6.9); Platelet Estimate NORMAL (NORMAL)
[2021-03-23 09:32] VITALS: BP 136/87; PULSE 118; O2SAT 97
--- NOTE | 2021-03-23 11:00 | OP ---
SURGERY DATE/TIME: 03/22/20211820 PREOPERATIVE DIAGNOSIS: Postoperative incisional abdominal wall hematoma. POSTOPERATIVE DIAGNOSIS: Postoperative incisional abdominal wall hematoma. PROCEDURE: Incision and evacuation of abdominal wall hematoma. SURGEON: Isaias Cullen D.O. VP OF CUSTOMER EXPERIENCE STRATEGY: Sheila Sethi, surgical brace maker. ANESTHESIA: General. ESTIMATED BLOOD LOSS: 100 cc of clotted blood from abdominal wall hematoma. INDICATIONS: The risks and benefits of surgery were discussed with the patient prior to the procedure. The patient understood the risk of infection, bleeding, bowel injury, bladder injury, ureteral injury associated with this surgery however desires to have this surgery as a possible means to alleviate her current medical condition. DESCRIPTION OF PROCEDURE AND FINDINGS: At this point the patient taken to the operating room, given general anesthesia. Placed in the supine position where she was prepped and draped in the usual sterile fashion. At this point incision was made along the previous section incision where it was opened up with a #10 scalpel and the sutures were cut with Metzenbaum scissors taking down through the fascia where there was no bleeding that was noted above the fascia. However, the fascia was then taken down with Metzenbaum scissors and just above the rectus muscles approximately 100 cc of clot and blood was evacuated. After removal of the hematoma and clotted blood, there was no bleeding that was noted. Extensive irrigation was made along the surface and again no bleeding was noted at this time. From this point the fascia was then closed with looped PDS suture and was done so without complication. The subcutaneous layer was closed with 3-0 Vicryl suture and the skin was closed with absorbable holden caused INSORB. The patient tolerated the procedure well. Sponge, lap and instrument counts were correct x2. The patient was then taken out of anesthesia and was then taken to the recovery room in stable condition. All instruments and laps were accounted for x2.
== END 2021-03-23 09:05 | disposition home or self-care (01) | DRG 784 ==
LOC: OB 23:44 → OBSVTOIN 23:45 → OB 23:45
PROVIDERS: ADMIT Family Medicine; ATTEND Family Medicine
PROC: 10D00Z1 Extraction of Products of Conception, Low, Open Approach (ICD-10-PCS; principal; 2021-03-21)
PROC: 0UB70ZZ Excision of Bilateral Fallopian Tubes, Open Approach (ICD-10-PCS; 2021-03-21)
PROC: 0J980ZZ Drainage of Abdomen Subcutaneous Tissue and Fascia, Open Approach (ICD-10-PCS; 2021-03-22)
DX: O32.1XX2 Maternal care for breech presentation, fetus 2 (principal); L76.32 Postprocedural hematoma of skin and subcutaneous tissue following other procedure; O30.003 Twin pregnancy, unspecified number of placenta and unspecified number of amniotic sacs, third trimester; Z3A.35 35 weeks gestation of pregnancy; Z37.2 Twins, both liveborn; Z30.2 Encounter for sterilization
CPT/HCPCS: 10140; 36415; 58611; 59510; 64488; 74178; 76856; 76937; 76942; 80053; 80307; 81001; 82570; 83735; 84156; 85025; 85461; 85610; 85730; 86850; 86870; 86900; 86901; 86922; 87086; 96372; 99140; J0330; J0690; J0702; J2175; J2250; J2300; J2405; J2590; J2704; J2790; J3010; L0625; A9270-GY